=== PATIENT | male | born 1950 | race Caucasian/White ===

== ENCOUNTER → 2017-09-04 | Outpatient (CLI) | payer OTHER ==
[~2017-09-04] MED LIST: ASPI81TA21 PO; CHOL100010 PO; LOSA1TAB38 PO; LPR25 PO
--- NOTE | 2017-09-04 08:58 | DIAGNOSTIC IMAGING REPORT ---
LEFT KNEE 5 VIEWS INCLUDING BILATERAL STANDING AP VIEWS CLINICAL HISTORY: LEFT KNEE PAIN COMPARISON: None. DISCUSSION: There are mild osteoarthritic changes with mild medial joint compartment narrowing. There are minor lateral joint compartment spurs. There is a tiny dorsal patellar spur. There are no acute fractures. No destructive lesions are evident. IMPRESSION: Mild degenerative change. No fractures are visualized. Electronically signed by: Jason Wills M.D. 09/04/2017 8:57 AM Dictated Date/Time: 09/04/2017 8:56 AM
== END | disposition home or self-care (01) ==
LOC: C.RDSM 16:32
PROVIDERS: ATTEND Physician Assistant
DX: M25.562 Pain in left knee (principal)

== ENCOUNTER → 2017-09-18 | Outpatient (CLI) | payer OTHER ==
[~2017-09-18] MED LIST changes: +ASPI-319 PO; -ASPI81TA21 PO
--- NOTE | 2017-09-18 14:44 | DIAGNOSTIC IMAGING REPORT ---
L LOWER EXT JOINT WITHOUT CLINICAL HISTORY: 67 years-old Male with LT KNEE OSTEOARTHRITIS. Acute left knee pain and swelling with recent tennis injury. Patient reports locking sensation of the knee. COMPARISON: Left knee radiographs 09/04/2017 TECHNIQUE: Multiplanar, multisequence MRI of the left knee was performed without intravenous contrast. FINDINGS: MENISCI: Multidirectional increased T2 signal and irregularity involves the medial meniscal body, posterior junction and posterior horn extending to both the superior and inferior articular surfaces nicely seen on image 16 series 4 and images 4 through 9 of series 5 with dominant horizontal undersurface tear component extending into the posterior meniscal root. No definite displaced fragment or parameniscal cyst. There is mild medial extrusion of the meniscus into the adjacent meniscal gutter with mild reactive parameniscal edema. Small radial tear of the posterior horn lateral meniscus nicely seen on image 20 of series 4. No displaced fragment or parameniscal cyst. CRUCIATE LIGAMENTS: Thickening with increased T2 signal of the intact anterior cruciate ligament is compatible with mucoid degeneration. The posterior cruciate ligament is intact and appears unremarkable. COLLATERAL LIGAMENTS: The popliteus tendon, biceps femoris tendon, fibular collateral ligament and iliotibial band are intact. The superficial and deep components of the medial collateral ligament are intact. EXTENSOR MECHANISM: The quadriceps and patellar tendons are intact. The medial and lateral patellar retinacula are intact. KNEE JOINT: Moderate joint effusion. Focal area of high-grade chondromalacia involves the mid weightbearing portion of the medial femoral condyle with mild underlying reactive subchondral edema nicely seen on image 19 series 4 with mild to moderate medial compartment joint space narrowing and marginal spurring. Mild joint space narrowing with marginal spurring involves the lateral and patellofemoral compartments. No additional high-grade chondromalacia identified. BONE MARROW: No acute fracture or marrow replacing process. SOFT TISSUES: 1.8 x 0.8 cm T2 hyperintense lesion posterior to the PCL suggests ganglion containing internal foci of decreased T2 signal measuring up to 4 mm suggesting loose bodies. Trace Mendoza's cyst. IMPRESSION: 1. Mild to moderate joint space narrowing and marginal spurring involves the medial compartment with only mild joint space narrowing and marginal spurring about the lateral and patellofemoral compartments. 2. Complex tear of the body, posterior junction and posterior horn medial meniscus with tear extension into the posterior meniscal root. 3. Small radial tear of the posterior horn lateral meniscus. 4. Moderate joint effusion. The above report was generated using voice recognition software. It may contain grammatical, syntax or spelling errors. Electronically signed by: Gerardo Mancera M.D. 09/18/2017 2:43 PM Dictated Date/Time: 09/18/2017 2:29 PM
== END | disposition home or self-care (01) ==
LOC: C.MRI 13:41
PROVIDERS: ATTEND Physician Assistant
DX: M17.12 Unilateral primary osteoarthritis, left knee (principal)

== ENCOUNTER 2025-02-20 10:13 | Observation (INO) ==
--- NOTE | 2025-02-20 10:34 | Emergency Department Note ---
Impression & Plan Syncope ED Provider Note CHIEF COMPLAINT: Syncope HISTORY OF PRESENTING ILLNESS: The patient is a pleasant 74-year-old male who arrives to the emergency department via private vehicle for evaluation of syncope. Patient reports he awoke this morning, and walked to the bathroom. He reports the next thing he remembers is his waking him up from the floor. at bedside states the patient was unresponsive for a few seconds. She reports the patient did have head strike. She reports the patient landed on his right side. Patient states he has a generalized headache, which is mild. He denies cervical, thoracic, or lumbar spine pain. He reports no chest pain, or shortness of breath. He denies recent travel, or leg pain. He reports no visual disturbance, unilateral weakness, or other injury. He states he does feel slightly nauseated, however he did not vomit. He reports he takes 81 mg of aspirin daily. Patient does state recently diagnosed with COVID, however felt that he was improving. REVIEW OF SYSTEMS: See HPI for pertinent positives and pertinent negatives. ALLERGIES: See below MEDICATIONS: See below PAST MEDICAL HISTORY: See below PHYSICAL EXAM: VITALS: Vitals are noted on the nurse's note and reviewed by myself. Vital signs stable. GENERAL: 74-year-old male, in no acute distress, nondiaphoretic, well-developed well-nourished. SKIN: The skin was without rashes, erythema, edema, or bruising. HEAD: Normocephalic atraumatic. EARS: External auditory canals clear, tympanic membranes pearly fried without erythema or effusion bilaterally. No hemotympanum. EYES: Pupils equal round and reactive to light and accommodation. Conjunctivae without injection, sclerae without icterus. Extraocular movements intact. No nystagmus. NOSE: Patent, turbinates without inflammation or discharge. No sinus tenderness. MOUTH: Mucous membranes dry. Tonsils are not enlarged. Pharynx without erythema or exudate. Uvula midline. Airway patent. Tongue does not deviate. NECK: Supple without nuchal rigidity. No lymphadenopathy. Cervical spine is nontender. No JVD. HEART: Regular rate and rhythm without murmurs gallops or rubs. LUNGS: Clear to auscultation bilaterally without wheezes, rales or rhonchi. No retractions or accessory muscle use. ABDOMEN: Positive bowel sounds x 4. Soft, nontender, without masses or organomegaly. Ye sign negative. No guarding or rebound tenderness. MUSCULOSKELETAL: No muscle atrophy, erythema, or edema noted. Normal gait. Strength 5/5 throughout. NEURO: Patient was alert and oriented to person place and time. No focal neurological deficits. NIHSS 0. DIFFERENTIAL DIAGNOSIS: Vasovagal event, dehydration, infection, hypoglycemia, electrolyte abnormalities, cardiac sources, intracerebral event, pulmonary embolism, seizure, toxicologic, neurologic, as well as other pathologies. ED COURSE AND MEDICAL DECISION MAKING: HISTORY FROM INDEPENDENT HISTORIAN: at bedside serving as secondary historian. MEDICATIONS GIVEN: 1 L NSS bolus MONITOR: Continuous monitoring tech: Order was placed for continuous monitoring tech. Patient was placed on the monitoring tech and continuous pulse ox. Patient was noted to be in normal sinus rhythm at an initial rate of 66 bpm per my interpretation. EKG: EKG was interpreted by myself as sinus bradycardia at a rate of 58bpm with no ST elevation or depression. Previous for comparison show sinus rhythm with premature atrial complexes, at 70 bpm, with an incomplete right bundle branch block performed on January 2023. INTERPRETATION OF LABS: I interpreted the labs with full lab results as below in the lab section of this note. Pertinent lab results discussed in the MDM section below. INTERPRETATION OF IMAGING: Imaging studies were interpreted by myself and read by radiology as per the imaging section of this note. MDM SUMMARY: The patient is a pleasant, 74-year-old male who arrives to the emergency department for evaluation of the above-stated complaint. CBC shows no leukocytosis, hemoglobin 12.8, hematocrit 39.2. Platelets 200. CMP shows sodium 131, glucose 158. Troponin 16.6. Urinalysis negative for infection. EKG interpreted as above. Chest x-ray per my interpretation shows no acute cardiopulmonary process. CT imaging of the head without contrast was obtained which shows no ICH, mass effect, midline shift, or hydrocephalus. There is a radiology notation of stable mild chronic small vessel ischemic change. No skull fracture is noted. Visualized paranasal sinuses and mastoid air cells are clear. Orthostatic vital signs were obtained, which were negative. Patient was provided 1 L NSS bolus. Patient reported slight improvement in symptoms with fluid resuscitation, however, not complete improvement. I do believe the patient requires admission to the hospitalist service for further evaluation due to syncope. The patient was admitted to Dr. Cotter, from the [facility] hospitalist group. Please refer to his documentation for further patient workup and care. DIAGNOSIS: Syncope The patient's case was discussed with Dr. Zarate, who agreed with my evaluation and treatment plan. The chart was completed utilizing [employer] Speech voice recognition software. Grammatical errors, random word insertions, pronoun errors, and incomplete sentences are an occasional consequence of this system due to software limitations, ambient noise, and hardware issues. Any formal questions or concerns about the content, text, or information contained within the body of this dictation should be directly addressed to the provider for clarification. Past Med/Surg History Problem List (Updated 02/20/25 @ 17:19 by LILY Landin) Syncope (Acute) COVID-19 Hyponatremia Vasovagal syncope Sensorineural hearing loss (SNHL) of left ear with restricted hearing of right ear Mild aortic insufficiency S/P ascending aortic aneurysm repair (2007) Mitral regurgitation (Acute) Hypertension (Chronic) Medical History Subluxation of costochondral joint Polymyalgia rheumatica Sensorineural hearing loss (SNHL) of left ear Aneurysm of thoracic aorta (2007) Right hamstring injury (04/2019) Surgical History History of appendectomy Family History Other No significant family history Social History Smoking Status: Never smoker Preferred Language: Tajik Feels Safe at Home: Yes Allergies Allergies Allergy/AdvReac Type Severity Reaction Status Date / Time No Known Drug Allergies Allergy Verified 02/20/25 13:11 Home Meds Home Medications Medication Instructions Recorded Confirmed cholecalciferol (vitamin D3) 25 2,000 units PO DAILY 04/01/19 02/20/25 mcg (1,000 unit) capsule tamsulosin 0.4 mg capsule 0.4 mg PO QPM 01/17/23 02/20/25 Previous Rx's Medication Instructions Recorded aspirin 81 mg tablet,delayed 81 mg PO DAILY #30 tabs 03/04/19 release clonidine HCl 0.1 mg tablet 0.1 mg PO DAILY PRN hypertension 06/25/24 #20 tabs metoprolol succinate 25 mg 12.5 mg (1/2 x 25 mg) PO DAILY #45 11/11/24 tablet,extended release 24 hr tabs losartan 100 mg tablet 100 mg PO DAILY #100 tabs 12/08/24 Results & Data (ED) Vital Signs Vital Signs - 24 hr 02/20/25 10:23 02/20/25 10:56 02/20/25 11:42 Temperature 36.4 C L Temperature Source Temporal Artery Scan Pulse Rate - Lying 59 L Pulse Rate - Sitting 62 Pulse Rate - Standing 68 Pulse Rate 66 56 L Pulse Rate [Finger] Pulse Rate from SpO2 Sensor Pulse Rhythm [Finger] Respiratory Rate 20 18 Respiratory Effort / Characteristics Non-Labored Spontaneous Respiratory Depth Normal Respiratory Pattern Blood Pressure - Lying 174/92 H Blood Pressure - Sitting 164/99 H Blood Pressure- Standing 165/92 H Blood Pressure 203/94 H Blood Pressure [Right Arm] Blood Pressure Mean 130 Blood Pressure Mean [Right Arm] Blood Pressure Position [Right Arm] Pulse Oximetry 96 97 Oxygen Delivery Method Room Air Room Air Sepsis Recent Fever Within 48 Hours No Sepsis New/Unexplained Change in Mental Status N/A Sepsis Action Taken by Nursing No Action Required 02/20/25 11:42 02/20/25 11:42 02/20/25 13:12 Temperature Temperature Source Pulse Rate - Lying Pulse Rate - Sitting Pulse Rate - Standing Pulse Rate 61 52 L Pulse Rate [Finger] 56 L Pulse Rate from SpO2 Sensor 50 L Pulse Rhythm [Finger] Regular Respiratory Rate 18 16 Respiratory Effort / Characteristics Non-Labored Spontaneous Respiratory Depth Normal Respiratory Pattern Regular Blood Pressure - Lying Blood Pressure - Sitting Blood Pressure- Standing Blood Pressure 143/72 H Blood Pressure [Right Arm] 164/90 H Blood Pressure Mean 95 Blood Pressure Mean [Right Arm] 114 Blood Pressure Position [Right Arm] Sitting Pulse Oximetry 97 96 Oxygen Delivery Method Room Air Sepsis Recent Fever Within 48 Hours Sepsis New/Unexplained Change in Mental Status Sepsis Action Taken by Nursing 02/20/25 13:27 02/20/25 13:27 02/20/25 13:27 Temperature Temperature Source Pulse Rate - Lying Pulse Rate - Sitting Pulse Rate - Standing Pulse Rate 55 L Pulse Rate [Finger] 54 L Pulse Rate from SpO2 Sensor 55 L Pulse Rhythm [Finger] Respiratory Rate 20 12 Respiratory Effort / Characteristics Respiratory Depth Respiratory Pattern Blood Pressure - Lying Blood Pressure - Sitting Blood Pressure- Standing Blood Pressure 151/92 H Blood Pressure [Right Arm] 151/92 H Blood Pressure Mean 112 Blood Pressure Mean [Right Arm] 111 Blood Pressure Position [Right Arm] Pulse Oximetry 97 96 Oxygen Delivery Method Room Air Sepsis Recent Fever Within 48 Hours Sepsis New/Unexplained Change in Mental Status Sepsis Action Taken by Nursing 02/20/25 13:27 02/20/25 13:27 02/20/25 13:36 Temperature Temperature Source Pulse Rate - Lying Pulse Rate - Sitting Pulse Rate - Standing Pulse Rate 44 L Pulse Rate [Finger] Pulse Rate from SpO2 Sensor 45 L Pulse Rhythm [Finger] Respiratory Rate 13 Respiratory Effort / Characteristics Respiratory Depth Respiratory Pattern Blood Pressure - Lying Blood Pressure - Sitting Blood Pressure- Standing Blood Pressure 151/92 H 151/92 H Blood Pressure [Right Arm] Blood Pressure Mean 112 112 Blood Pressure Mean [Right Arm] Blood Pressure Position [Right Arm] Pulse Oximetry 97 Oxygen Delivery Method Sepsis Recent Fever Within 48 Hours Sepsis New/Unexplained Change in Mental Status Sepsis Action Taken by Nursing 02/20/25 14:02/20/25 14:12 Temperature Temperature Source Pulse Rate - Lying Pulse Rate - Sitting Pulse Rate - Standing Pulse Rate 48 L 46 L Pulse Rate [Finger] Pulse Rate from SpO2 Sensor 49 L 46 L Pulse Rhythm [Finger] Respiratory Rate 20 14 Respiratory Effort / Characteristics Respiratory Depth Respiratory Pattern Blood Pressure - Lying Blood Pressure - Sitting Blood Pressure- Standing Blood Pressure Blood Pressure [Right Arm] Blood Pressure Mean Blood Pressure Mean [Right Arm] Blood Pressure Position [Right Arm] Pulse Oximetry 96 96 Oxygen Delivery Method Sepsis Recent Fever Within 48 Hours Sepsis New/Unexplained Change in Mental Status Sepsis Action Taken by Prison Medications Current Medication List: was personally reviewed by me Laboratory Data Attestation: I reviewed the patient's lab results. 02/20/25 10:56 02/20/25 10:56 Lab Results 02/20/25 02/20/25 Range/Units 10:56 11:21 WBC 5.91 (4.8-10.8) K/ul RBC 4.44 L (4.70-6.10) M/uL Hgb 12.8 L (14.0-18.0) g/dl Hct 39.2 L (42.0-52.0) % MCV 88.3 (80.0-100.0) fL MCH 28.8 (25.0-34.0) pg MCHC 32.7 (32.0-36.0) g/dL RDW Std Deviation 42.9 (36.4-46.3) fL RDW Coeff of [employer] 13.2 (11.5-14.5) % Plt Count 200 (130-400) K/uL MPV 10.2 (9.4-12.4) fL Immature Gran % (Auto) 0.2 % Neut % (Auto) 70.6 % Lymph % (Auto) 18.4 % Nye % (Auto) 6.8 % Eos % (Auto) 3.0 % Baso % (Auto) 1.0 % Neut # (Auto) 4.17 (1.40-6.50) K/uL Lymph # (Auto) 1.09 L (1.20-3.40) K/uL Nye # (Auto) 0.40 (0.11-0.59) K/uL Eos # (Auto) 0.18 (0.00-0.50) K/uL Baso # (Auto) 0.06 (0.00-0.20) K/uL Immature Gran # (Auto) 0.01 (0.01-0.20) K/uL Sodium 131 L (136-145) mmol/L Potassium 3.8 (3.5-5.1) mmol/L Chloride 99 (98-107) mmol/L Carbon Dioxide 24 (21-32) mmol/L Anion Gap 8 (3-11) BUN 21 (6-23) mg/dl Creatinine 1.12 (0.6-1.4) mg/dl Est Cr Clr Drug Dosing 57.0 ml/min eGFR 68.51 BUN/Creatinine Ratio 18.8 (10-20) Glucose 158 H (70-99(Fasting)) mg/dl Calcium 8.6 (8.6-10.3) mg/dl Magnesium 1.9 (1.7-2.4) mg/dl Total Bilirubin 0.6 (0.2-1.0) mg/dl AST 21 (13-39) U/L ALT 15 (7-52) U/L Alkaline Phosphatase 86 (34-104) U/L Troponin I High Sens 16.6 (0-20) pg/ml Total Protein 6.3 (6.0-8.3) gm/dl Albumin 3.8 (3.4-5.0) gm/dl Globulin 2.5 (2.5-4.0) gm/dl Albumin/Globulin Ratio 1.5 (0.9-2) Urine Color Yellow Urine Appearance Clear (Clear) Urine pH 6.5 (4.5-7.5) Ur Specific [place] 1.011 (1.000-1.030) Urine Protein Negative (Negative) Urine Glucose (UA) Negative (Negative) Urine Ketones Negative (Negative) Urine Blood Negative (Negative) Urine Nitrite Negative (Negative) Urine Bilirubin Negative (Negative) Urine Urobilinogen Negative (Negative) Ur Leukocyte Esterase Negative (Negative) Urine Comment Administered Medications Discontinued Medications Sodium Chloride (Nss) 1,000 mls @ 999 mls/hr IV .Q1H1M RADHA Stop: 02/20/25 11:45 Last Infusion: 02/20/25 12:01 Dose: Infused Documented By: Admin: 02/20/25 10:53 Dose: 999 mls/hr Documented By: OLIVER Imaging Data Attestation: I personally reviewed and interpreted this imaging study as follows: Radiologist's Impression: Head CT 02/20/25 10:40 CT head/brain wo con CLINICAL HISTORY: syncope. TECHNIQUE: Multiple axial CT images of the head were obtained without contrast. A dose lowering technique was utilized adhering to the principles of ALARA. CT DOSE: 625.8 mGy.cm COMPARISON: 01/17/2023 FINDINGS: No intracranial hemorrhage seen. No mass effect, midline shift, or hydrocephalus. Stable mild chronic small vessel ischemic change. No skull fracture seen. Visualized paranasal sinuses and mastoid air cells are clear. IMPRESSION: No acute findings. ACT 112: Negative or not required by law. The above report was generated using voice recognition software. It may contain grammatical, syntax or spelling errors. Electronically signed by: Salvatore Madison M.D. 02/20/2025 11:48 AM Chest X-Ray 02/20/25 10:45 XR chest 1V portable CLINICAL HISTORY: syncope COMPARISON STUDY: 05/02/2019 FINDINGS: Stable CABG. Heart size and pulmonary vasculature are normal. There are mildly hyperexpanded lungs. No consolidation or pleural effusion. No pneumothorax. IMPRESSION: No acute findings. ACT 112: Negative or not required by law. Electronically signed by: Salvatore Madison M.D. 02/20/2025 10:58 AM Head Trauma GCS Score: 15 Discharge Plan Visit Data Chief Complaint: Syncope Stated Complaint: SYNCOPE, SHAKING ED Provider: Otoniel Zarate ED Midlevel Provider: Yue Roberts Discharge Problem: Syncope Patient Disposition: Admitted As Inpatient Condition: Fair Discharge Instructions Interventions: ED Discharge Assessment Last Done: 02/20/25 15:31
--- NOTE | 2025-02-20 10:43 | Emergency Department Note ---
ED Visit Note I was consulted by the Advanced Practice Provider LILY Hammond. I performed a substantive portion of the visit including all aspects of medical decision making. .
[2025-02-20] MEDS: SODIUM CHLORIDE 0.9% 1,000 ML IV SCH (10:53)
--- NOTE | 2025-02-20 11:00 | XRay Report ---
XR chest 1V portable CLINICAL HISTORY: syncope COMPARISON STUDY: 05/02/2019 FINDINGS: Stable CABG. Heart size and pulmonary vasculature are normal. There are mildly hyperexpande d lungs. No consolidation or pleural effusion. No pneumothorax. IMPRESSION: No acute findings. ACT 112: Negative or not required by law. Electronically signed by: Salvatore Madison M.D. 02/20/2025 10:58 AM
[2025-02-20 11:26] LABS: Hematocrit (blood only) 39.2 % (42.0-52.0); Hemoglobin 12.8 g/dl (14.0-18.0); Immature Granulocytes # (auto) 0.01 K/uL (0.01-0.20); Immature Granulocytes % (auto) 0.2 %; Mean Corpuscular Hemoglobin 28.8 pg (25.0-34.0); Mean Corpuscular Volume 88.3 fL (80.0-100.0); Platelet Count 200 K/uL (130-400); RDW Standard Deviation 42.9 fL (36.4-46.3); Red Blood Count 4.44 M/uL (4.70-6.10); White Blood Count 5.91 K/ul (4.8-10.8)
[2025-02-20 11:49] LABS: Alanine Aminotransferase 15.0 U/L (7-52); Albumin Globulin Ratio 1.5 (0.9-2); Alkaline Phosphatase 86.0 U/L (34-104); Anion Gap 8.0 (3-11); Bilirubin,Total 0.6 mg/dl (0.2-1.0); Blood Urea Nitrogen 21.0 mg/dl (6-23); Calcium 8.6 mg/dl (8.6-10.3); Carbon Dioxide 24.0 mmol/L (21-32); Chloride 99.0 mmol/L (98-107); Creatinine Clr Calc Pharmacy 57.0 ml/min; Globulin 2.5 gm/dl (2.5-4.0); Glucose 158.0 mg/dl (70-99(Fasting)); Magnesium 1.9 mg/dl (1.7-2.4); Potassium 3.8 mmol/L (3.5-5.1); Sodium 131.0 mmol/L (136-145); Total Protein 6.3 gm/dl (6.0-8.3)
--- NOTE | 2025-02-20 11:50 | CT Scan Report ---
CT head/brain wo con CLINICAL HISTORY: syncope. TECHNIQUE: Multiple axial CT images of the head were obtained without contrast. A dose lowering tech nique was utilized adhering to the principles of ALARA. CT DOSE: 625.8 mGy.cm COMPARISON: 01/17/2023 FINDINGS: No intracranial hemorrhage seen. No mass effect, midline shift, or hydrocephalus. Stable mi ld chronic small vessel ischemic change. No skull fracture seen. Visualized paranasal sinuses and mas toid air cells are clear. IMPRESSION: No acute findings. ACT 112: Negative or not required by law. The above report was generated using voice recognition software. It may contain grammatical, syntax o r spelling errors. Electronically signed by: Salvatore Madison M.D. 02/20/2025 11:48 AM
[2025-02-20 12:05] LABS: Appearance Urine Clear (Clear); Glucose Urine UA Negative (Negative)
--- NOTE | 2025-02-20 12:48 | History & Physical Report ---
Date of Service February 20, 2025 Assessment & Plan (1) Vasovagal syncope: (2) Hyponatremia: (3) COVID-19: (4) Aneurysm of thoracic aorta: (5) Polymyalgia rheumatica: (6) Hypertension: Plan 74 y/o man who is generally healthy and active with recent COVID-19 who presents with syncopal episode Occurred in bathroom around 7AM. He was up late and had taken his flomax much later than usual. There was no prodrome. He was clammy when his found him and felt poorly for awhile. Orthostatics were negative in ED. CXR by my personal interpretation of the film is clear, median sternotomy wires and widened aorta are present. EKG - unchanged from previous, personally reviewed tracing - sinus rhythm with pac, leftward axis, incomplete RBBB. # syncope - probably vasovagal or orthostatic syncope based on presentation, however, he lacked a prodrome so could have been arrhythmia. No chest pain, dyspnea, or hypoxia to suggest PE which seems unlikely. He has some elevated risk for arrhythmia, especially bradycardia, related to his metoprolol and underlying cardiac condition. No evidence of ACS, infection, hemorrhage, or other causes of syncope - monitor on tele and will set up ambulatory monitor - defer Echo since he had one late May 2023, see below - continue metoprolol and see whether he has any symptomatic bradycardia # possibly hit head - head CT without acute findings, has no head or neck pain/tenderness and no deformity on exam, monitor neuro exam and symptoms # COVID-19 - resolving but has contributed to low oral intake and some dehydration including hyponatremia # hyponatremia - hypovolemic - 1L NS in ED. Check AM BMP # HTN - continue metoprolol, losartan, prn clonidine. Had significant white coat HTN # ascending aortic aneurysm. Dr Vallejo retired, reports he will follow up with Dr. Leo reviewed previous cardiology clinic notes and echo reports ascending aortic aneurysm repair and resuspension of aortic valve 05/2023 echo showed intact aortic root/ascending aorta graft. No significant valvular disease -no chest pain or dyspnea, low suspicion that this is related to his presentation with syncope -tele monitor, AM CBC -monitor VS and get CTA, Echo if chest pain #DVT ppx - low risk - SCD, ambulation History of Present Illness Chief Complaint: syncope Primary Care Provider: Diony Davison MD 74 y/o man with history of aortic graft for an aneurysm in 2007 but no significant valvular disease who came in to ED after syncopal episode. He came down with COVID-19 a week ago, had fevers for about five days which resolved. Still with low appetite but otherwise symptoms resolved. 48h ago resumed exercising had a moderately intense bike ride and lifted some weights which is a new activity but tolerated fine. Yesterday did not eat or drink very much, was up very late and took his flomax 0.8 mg quite late, in the middle of the night. Sudden LOC occurred while he was standing in bathroom around 7AM. He was about to urinate but can't recall if he actually urinated or not. There was no prodrome. He was clammy when his found him and felt poorly for awhile after. He was hypertensive later and took a prn clonidine. Now feels fine except dry mouth. HR has been in high 40s and 50s on monitor, he is on only low dose metoprolol because of chronic bradycardia. Allergies Allergy/AdvReac Type Severity Reaction Status Date / Time No Known Drug Allergies Allergy Verified 02/20/25 13:11 Home Medications Medication Instructions Recorded Confirmed Type aspirin 81 mg tablet,delayed 81 mg PO DAILY #30 tabs 03/04/19 02/20/25 Rx release cholecalciferol (vitamin D3) 25 2,000 units PO DAILY 04/01/19 02/20/25 History mcg (1,000 unit) capsule tamsulosin 0.4 mg capsule 0.4 mg PO QPM 01/17/23 02/20/25 History clonidine HCl 0.1 mg tablet 0.1 mg PO DAILY PRN hypertension 06/25/24 02/20/25 Rx #20 tabs metoprolol succinate 25 mg 12.5 mg (1/2 x 25 mg) PO DAILY #45 11/11/24 02/20/25 Rx tablet,extended release 24 hr tabs losartan 100 mg tablet 100 mg PO DAILY #100 tabs 12/08/24 02/20/25 Rx Past Med/Surg History Problem List Syncope (Acute) COVID-19 Hyponatremia Vasovagal syncope Sensorineural hearing loss (SNHL) of left ear with restricted hearing of right ear Mild aortic insufficiency S/P ascending aortic aneurysm repair (2008) Mitral regurgitation (Acute) Hypertension (Chronic) Medical History Subluxation of costochondral joint Polymyalgia rheumatica Sensorineural hearing loss (SNHL) of left ear Aneurysm of thoracic aorta (2007) Right hamstring injury (04/2019) Surgical History History of appendectomy Family History Other No significant family history Social History Smoking Status: Never smoker Preferred Language: Greenlandic Feels Safe at Home: Yes Review of Systems 2 Review of Systems: All systems reviewed & are unremarkable except as noted in HPI & below Physical Exam 2 Physical Exam: Last 24h vitals reviewed GEN: no acute distress, sitting in bed HEENT: pupils equal, sclerae anicteric, moist MM. No trauma of head, moves neck around without soreness RESP: normal WOB, CTAB CV: mildly bradycardic reg, systolic murmur which radiates to both carotids ABD: soft/nt/nd +BT : no soriano SKIN: warm and dry, no generalized rashes NEURO: AOx person, place, and situation. Face symmetric, speech normal, moves 4 ext spontaneously and equally Results & Data Results & Data Vital Signs (Past 12 Hours) Vital Signs Temp Pulse Pulse Resp BP BP Pulse Ox 02/20/25 11:42 61 02/20/25 11:42 56 L 18 164/90 H 97 02/20/25 11:42 56 L 18 97 02/20/25 10:23 36.4 C L 66 20 203/94 H 96 O2 Del Method 02/20/25 11:42 02/20/25 11:42 Room Air 02/20/25 11:42 Room Air 02/20/25 10:23 Room Air Laboratory Results 02/20/25 10:56 02/20/25 10:56 UA negative LFT normal Cr at baseline HS-trop [address] 02/20/25 10:40 CT head/brain wo con CLINICAL HISTORY: syncope. TECHNIQUE: Multiple axial CT images of the head were obtained without contrast. A dose lowering technique was utilized adhering to the principles of ALARA. CT DOSE: 625.8 mGy.cm COMPARISON: 01/17/2023 FINDINGS: No intracranial hemorrhage seen. No mass effect, midline shift, or hydrocephalus. Stable mild chronic small vessel ischemic change. No skull fracture seen. Visualized paranasal sinuses and mastoid air cells are clear. IMPRESSION: No acute findings. ACT 112: Negative or not required by law. The above report was generated using voice recognition software. It may contain grammatical, syntax or spelling errors. Electronically signed by: Salvatore Madison M.D. 02/20/2025 11:48 AM Chest X-Ray 02/20/25 10:45 XR chest 1V portable CLINICAL HISTORY: syncope COMPARISON STUDY: 05/02/2019 FINDINGS: Stable CABG. Heart size and pulmonary vasculature are normal. There are mildly hyperexpanded lungs. No consolidation or pleural effusion. No pneumothorax. IMPRESSION: No acute findings. ACT 112: Negative or not required by law. Electronically signed by: Salvatore Madison M.D. 02/20/2025 10:58 AM PG Care Time/CCT Total # of Minutes Spent Total Time Spent with Patient: Total time spent is greater than 50% in coordination of care (as documented) at patient's floor/unit and/or counseling patient: Coding Level of Care Code 14683 INT INP/OBS CARE 3/75MIN Diagnoses Vasovagal syncope R55 Hyponatremia E87.1 COVID-19 U07.1 Aneurysm of thoracic aorta I71.2 Polymyalgia rheumatica M35.3 Hypertension I10
[2025-02-20] MEDS ORDERED: ACETAMINOPHEN 325 MG TAB PO PRN (15:30)
[2025-02-20] MEDS ORDERED: ALUMINUM/MAGNESIUM SUSP 30 ML UDC PO PRN (15:30)
[2025-02-20] MEDS ORDERED: MELATONIN 3 MG TAB PO PRN (15:30)
[2025-02-20] MEDS ORDERED: POLYETHYLENE (MIRALAX) 17 GM PACK PO PRN (15:30)
[2025-02-20] MEDS ORDERED: MAGNESIUM HYDROXIDE SUSP 30 ML UDC PO PRN (15:30)
[2025-02-20] MEDS ORDERED: ONDANSETRON INJ 2 MG/ML 2 ML VIAL IV PRN (15:30)
[2025-02-20] MEDS: TAMSULOSIN HCL 0.4 MG CAP PO SCH (20:16)
[2025-02-21 06:13] LABS: Hematocrit (blood only) 37.6 % (42.0-52.0); Hemoglobin 12.2 g/dl (14.0-18.0); Mean Corpuscular Hemoglobin 28.8 pg (25.0-34.0); Mean Corpuscular Volume 88.9 fL (80.0-100.0); Platelet Count 201 K/uL (130-400); RDW Standard Deviation 43.2 fL (36.4-46.3); Red Blood Count 4.23 M/uL (4.70-6.10); White Blood Count 7.44 K/ul (4.8-10.8)
[2025-02-21 06:31] LABS: Anion Gap 4.0 (3-11); Blood Urea Nitrogen 16.0 mg/dl (6-23); Calcium 8.5 mg/dl (8.6-10.3); Carbon Dioxide 27.0 mmol/L (21-32); Chloride 107.0 mmol/L (98-107); Creatinine Clr Calc Pharmacy 56.0 ml/min; Glucose 94.0 mg/dl (70-99(Fasting)); Potassium 4.4 mmol/L (3.5-5.1); Sodium 138.0 mmol/L (136-145)
[2025-02-21] MEDS: LOSARTAN POTASSIUM 50 MG TAB PO SCH (09:22)
[2025-02-21] MEDS: ASPIRIN 81 MG ECTAB PO SCH (09:23)
--- NOTE | 2025-02-21 10:09 | Discharge Summary ---
Discharge Summary Date of Service February 21, 2025 Principal Dx & Hospital Course #1 = Principal Diagnosis (1) Syncope: (2) Hyponatremia: (3) COVID-19: (4) Aneurysm of thoracic aorta: (5) Polymyalgia rheumatica: (6) Hypertension: Plan 74 y/o man who is generally healthy and active with recent COVID-19 who presents with syncopal episode Occurred in bathroom around 7AM. He was up late and had taken his flomax much later than usual. There was no prodrome. He was clammy when his found him and felt poorly for awhile. Orthostatics were negative in ED. CXR by my personal interpretation of the film is clear, median sternotomy wires and widened aorta are present. EKG - unchanged from previous, personally reviewed tracing - sinus rhythm with pac, leftward axis, incomplete RBBB. # syncope - #bradycardia probably vasovagal or orthostatic syncope based on presentation, however, he lacked a prodrome so could have been arrhythmia especially a bradycardia. No chest pain, dyspnea, or hypoxia to suggest PE which seems unlikely. He has some elevated risk for arrhythmia related to underlying cardiac conditions. No evidence of ACS, infection, hemorrhage, or other causes of syncope - defer Echo since he had one late May 2023, see below, low yield - he was bradycardic on tele often into 40s and had 3 second pause. would not be concerning if asymptomatic but in the context of the syncope could be related -hold metoprolol for now - will set up ambulatory monitor - will request cardiology appt prior to May 15 when he establishes with Dr. Leo - continue metoprolol and see whether he has any symptomatic bradycardia # possibly hit head - head CT without acute findings, has no head or neck pain/tenderness and no deformity on exam, remained asymptomatic # COVID-19 - resolving but has contributed to low oral intake and some dehydration including hyponatremia - advised to limit significant exercise until he is totally well # hyponatremia - hypovolemic - 1L NS in ED. Resolved # HTN - continue losartan, prn clonidine. Had significant white coat HTN # ascending aortic aneurysm. Dr Vallejo retired, reports he will follow up with Dr. Leo reviewed previous cardiology clinic notes and echo reports ascending aortic aneurysm repair and resuspension of aortic valve 05/2023 echo showed intact aortic root/ascending aorta graft. No significant valvular disease -no chest pain or dyspnea, low suspicion that this is related to his presentation with syncope -holding metoprolol as above Admission HPI Per Admitting Provider 74 y/o man with history of aortic graft for an aneurysm in 2007 but no significant valvular disease who came in to ED after syncopal episode. He came down with COVID-19 a week ago, had fevers for about five days which resolved. Still with low appetite but otherwise symptoms resolved. 48h ago resumed exercising had a moderately intense bike ride and lifted some weights which is a new activity but tolerated fine. Yesterday did not eat or drink very much, was up very late and took his flomax 0.8 mg quite late, in the middle of the night. Sudden LOC occurred while he was standing in bathroom around 7AM. He was about to urinate but can't recall if he actually urinated or not. There was no prodrome. He was clammy when his found him and felt poorly for awhile after. He was hypertensive later and took a prn clonidine. Now feels fine except dry mouth. HR has been in high 40s and 50s on monitor, he is on only low dose metoprolol because of chronic bradycardia. Discharge Exam Last 24h vitals reviewed GEN: no acute distress, sitting in bed HEENT: pupils equal, sclerae anicteric, moist MM. No trauma of head, moves neck around without soreness RESP: normal WOB, CTAB CV: mildly bradycardic reg, systolic murmur which radiates to both carotids ABD: soft/nt/nd +BT : no soriano SKIN: warm and dry, no generalized rashes NEURO: AOx person, place, and situation. Face symmetric, speech normal, moves 4 ext spontaneously and equally Discharge Plan Discharge Items Patient Disposition: Home - Self-Care Reason For Visit: SYNCOPE Discharge Diagnosis: syncope Condition on Discharge: Good Activity: Resume your previous activity Non-emergency contact: Primary Care Provider and Chip Mixer Call non-emergency contact if: you have any medication questions and your symptoms worsen Follow-up/Referrals: Diony Davison MD [Primary Care Provider] - (Please call your primary care provider to schedule a hospital follow-up appointment within 7-10 days) Diet: Heart Healthy Addtl Attending Provider Instructions: You had a syncopal (passing out) event It may have been related to a benign cause of syncope (vasovagal syncope) especially given the story of how it happened. You also have had low heart rates in the hospital - in the 40s. Very low heart rate or other arrhythmia can also cause syncope -HOLD the metoprolol so your heart rate can come up -recommend an outpatient rhythm monitor and moving up a cardiology appointment - I will ask my nurse to have the cardiology clinic help arrange these on Sunday Seek immediate medical attention if you have another loss of consciousness I would take it easy with respect to exercise for at least another week - until you're symptom free from the COVID and your appetite is improved. Stay hydrated. It was a pleasure taking care of you in the hospital, Kalie Ferguson MD Pending Studies at Discharge: No Stand-Alone Forms: [facility], Smoking Cessation Medications and DC Order Prescriptions: Continued aspirin 81 mg tablet,delayed release (DR/EC) 81 mg PO DAILY Qty: 30 2RF losartan 100 mg tablet 100 mg PO DAILY Qty: 100 3RF clonidine HCl 0.1 mg tablet 0.1 mg PO DAILY PRN (Reason: hypertension) Qty: 20 2RF cholecalciferol (vitamin D3) 1,000 unit capsule 2,000 units PO DAILY tamsulosin 0.4 mg capsule 0.4 mg PO QPM Held metoprolol succinate 25 mg tablet extended release 24 hr 12.5 mg PO DAILY Qty: 45 2RF Hold Instructions: until / if restarted by your physician. Held for low heart rates and syncopal episode Discharge Orders: Discharge Order (Routine); Ordered 02/21/25 Ordered By: Kalie Ferguson Admission Data Admit Date/Time: 02/20/25 14:24 Attending Provider: Kalie Ferguson Admit Provider: Kalie Ferguson Primary Care Provider: Diony Davison Other Providers: Lenny Cotter Other Interventions: Discharge Summary Assessment (RN) Last Done: 02/21/25 11:00 Hospital Stay Data Consultations 02/20/25 12:17 ED Decision to Admit Stat Diagnostic Imagining Performed 02/20/25 10:40 CT head/brain wo con Stat Pending Results Patient Have Any Pending Studies at Discharge: No Discharge Instructions Given to Patient (Per Discharging Provider) You had a syncopal (passing out) event It may have been related to a benign cause of syncope (vasovagal syncope) especially given the story of how it happened. You also have had low heart rates in the hospital - in the 40s. Very low heart rate or other arrhythmia can also cause syncope -HOLD the metoprolol so your heart rate can come up -recommend an outpatient rhythm monitor and moving up a cardiology appointment - I will ask my nurse to have the cardiology clinic help arrange these on Sunday Seek immediate medical attention if you have another loss of consciousness I would take it easy with respect to exercise for at least another week - until you're symptom free from the COVID and your appetite is improved. Stay hydrated. It was a pleasure taking care of you in the hospital, Kalie Ferguson MD Total Time Total Time Spent Total Time Spent (In Minutes): <30 Coding Level of Care Code 46624 IN/OBS DISCH 30 MIN/LESS Diagnoses Syncope R55 Hyponatremia E87.1 COVID-19 U07.1 Aneurysm of thoracic aorta I71.2 Polymyalgia rheumatica M35.3 Hypertension I10
[2025-02-21] MEDS: METOPROLOL SUCC 25MG EXT REL TAB PO SCH (10:12)
--- NOTE | 2025-02-24 12:02 | Electrocardiogram Report ---
Test Reason : Blood Pressure : */* mmHG Vent. Rate : 58 BPM Atrial Rate : 58 BPM P-R Int : 168 ms QRS Dur : 102 ms QT Int : 416 ms P-R-T Axes : -25 -22 -21 degrees QTcB Int : 408 ms Sinus bradycardia Inferior infarct , age undetermined Abnormal ECG When compared with ECG of 17-Jan-2023 10:45, Premature atrial complexes are no longer Present Incomplete right bundle branch block is no longer Present Inferior infarct is now Present Confirmed by Tomer Flores ([id number]) on 02/24/2025 12:01:59 PM Referred By: REFERRED SELF Confirmed By: Tomer Flores
== END 2025-02-21 12:42 | disposition home or self-care (01) ==
LOC: ED 10:13 → EDINP 10:13 → 2N 15:31